=== PATIENT | male | born 1940 | race Caucasian/White ===

== ENCOUNTER 2017-09-10 09:08 | Day surgery (SDC) | payer BC ==
[2017-09-02 11:13] VITALS: BMI 30.7
[2017-09-10 12:30] VITALS: TEMP 98.5
[2017-09-10 13:00] VITALS: BP 130/74; PULSE 60
== END 2017-09-10 13:00 | disposition home or self-care (01) ==
LOC: FASU 09:08
PROVIDERS: ATTEND Ophthalmology
PROC: 08RK3JZ Replacement of Left Lens with Synthetic Substitute, Percutaneous Approach (ICD-10-PCS; principal; 2017-09-10)
DX: H25.22 Age-related cataract, morgagnian type, left eye (principal)

== ENCOUNTER 2020-07-12 12:27 | Emergency (ER) | payer BC, OTHER | END 2020-07-12 12:43 | disposition home or self-care (01) | LOC: JVIRT 12:27 | DX: Z11.52 Encounter for screening for COVID-19 (principal) | CPT/HCPCS: C9803; G2251-GT; U0003 ==

== ENCOUNTER 2022-04-30 12:39 | Observation (INO) | payer OTHER, BC ==
[2022-04-30] MEDS ORDERED: SODIUM CHLORIDE 500 ML IV STA ×2 (12:55→14:24)
[2022-04-30 13:23] LABS: HEMOGLOBIN 13.6 G/dL (11.7-16.9); MCH 34.4 pg (25.7-33.7); MCHC 34.7 g/dl (32.0-35.9); MEAN CELL VOLUME 99.1 fl (80-96); MEAN PLT VOLUME 9.1 fl (7.5-11.1); RBC 3.94 10^6/uL (4.00-5.60); RDW 12.9 % (11.9-15.9); WHITE BLOOD COUNT 16.7 10^3/uL (4.0-10.8)
[2022-04-30 13:35] LABS: EPITHELIAL CELLS FEW /hpf; URINE HYALINE CAST 0-1 /lpf; URINE MUCUS 1+
[2022-04-30 13:36] LABS: AMORP URATES 1+ /hpf (NONE SEEN)
[2022-04-30 13:37] LABS: ALBUMIN 4.1 g/dl (3.4-5.0); CALCIUM 8.9 mg/dl (8.5-10); CREATININE 0.8 mg/dl (0.55-1.3); TOT PROT 6.5 g/dl (6.4-8.2)
[2022-04-30 17:50] VITALS: BMI 65.7
[2022-04-30 20:11] VITALS: RESP 18
[2022-05-01 08:27] LABS: ALBUMIN 3.4 g/dl (3.4-5.0); BILIRUBIN,TOTAL 0.8 mg/dl (0.2-1); CALCIUM 8.6 mg/dl (8.5-10); CREATININE 0.8 mg/dl (0.55-1.3); MAGNESIUM 1.7 mg/dL (1.8-2.4); TOT PROT 5.6 g/dl (6.4-8.2)
[2022-05-01] MEDS ORDERED: CHOLECALCIFEROL (VIT D3) 1,000 UNIT (25 MCG) TABLET PO SCH (10:00)
[2022-05-01] MEDS ORDERED: ASPIRIN COATED 81 MG TABLET.EC PO SCH (10:00)
[2022-05-01 10:54] LABS: BASO % 0.6 % (0-2.0); EOS % 1.1 % (0-4.5); HEMATOCRIT 35.8 % (35.4-49); HEMOGLOBIN 12.2 GM/dL (11.7-16.9); LYMPH % 15.3 % (8-40); MCH 33.8 pg (25.7-33.7); MCHC 34.1 g/dl (32.0-35.9); MEAN CELL VOLUME 99.1 fl (80-96); MEAN PLT VOLUME 9.1 fl (7.5-11.1); MONO % 10.6 % (3.8-10.2); NEUT % 72.4 % (42.8-82.8); PLATELET COUNT 151 10^3/uL (134-434); RBC 3.62 M/mm3 (4.00-5.60); RDW 12.7 % (11.9-15.9); WHITE BLOOD COUNT 8.5 K/mm3 (4.0-10.0)
[2022-05-01 14:02] VITALS: BP 117/63; PULSE 72; TEMP 98.5
== END 2022-05-01 17:22 | disposition home or self-care (01) ==
LOC: FER 12:39 → FM/S 14:45
PROVIDERS: ADMIT Internal Medicine; ATTEND Internal Medicine
PROC: 3E0337Z Introduction of Electrolytic and Water Balance Substance into Peripheral Vein, Percutaneous Approach (ICD-10-PCS; principal; 2022-04-30)
DX: I35.0 Nonrheumatic aortic (valve) stenosis (principal); K21.9 Gastro-esophageal reflux disease without esophagitis; E87.1 Hypo-osmolality and hyponatremia; E78.5 Hyperlipidemia, unspecified; R55 Syncope and collapse; Z95.2 Presence of prosthetic heart valve
CPT/HCPCS: 36415; 71045-TC-FY; 80053; 80061; 81003; 81015; 83735; 84443; 84484; 85025; 85027; 87040; 93005; 93880-TC; 96360; 96361; 97116-GP; 97162-GP; 99285-25; C9803-CS; G0378; U0003; U0005

== ENCOUNTER 2022-05-05 17:26 | Emergency (ER) | payer OTHER, BC ==
[2022-05-05] MEDS ORDERED: LIDOCAINE 5% TOPICAL PATCH TP ONE (17:32)
[2022-05-05] MEDS ORDERED: IBUPROFEN 400 MG TABLET (FP) PO ONE ×2 (17:32→17:53)
[2022-05-05 17:52] VITALS: BP 156/91; PULSE 68; RESP 20; TEMP 98; BMI 29.2
[2022-05-05] MEDS ORDERED: LIDOCAINE 5% TOPICAL PATCH ONE (17:53)
[2022-05-05] MEDS ORDERED: METHOCARBAMOL 500 MG TABLET PO ONE (20:54)
[2022-05-05] MEDS ORDERED: LIDOCAINE PATCH REMOVAL MC SCH (22:00)
== END 2022-05-05 20:55 | disposition home or self-care (01) ==
LOC: FER 17:26
DX: M54.50 Low back pain, unspecified (principal)
CPT/HCPCS: 72100-TC-FY; 99283-25